=== PATIENT | female | born 1955 | race Caucasian/White ===

== ENCOUNTER 2016-11-07 07:09 | Day surgery (SDC) | payer OTHER ==
[2016-11-07] MEDS ORDERED: LIDOCAINE 1% 5 ML SDV ID PRN (07:21)
[2016-11-07] MEDS ORDERED: LR 1,000 ML IV ONE (07:21)
[2016-11-07] MEDS ORDERED: LIDOCAINE 1% 2 ML INJ ONE (07:26)
--- NOTE | 2016-11-07 08:05 | PDANEPAE ---
ANE Past Medical History - Cardiovascular History Hx Hypertension: Yes Hx Arrhythmias: No Hx Chest Pain: No Hx Coronary Artery / Peripheral Vascular Disease: No Hx CHF / Valvular Disease: No Hx Palpitations: No - Pulmonary History Hx COPD: No Hx Asthma/Reactive Airway Disease: No Hx Recent Upper Respiratory Infection: No Hx Oxygen in Use at Home: No - Neurologic History Hx Cerebrovascular Accident: No Hx Seizures: No Hx Dementia: No - Endocrine History Hx Diabetes: No - Renal History Hx Renal Disorders: No - Liver History Hx Hepatic Disorders: No - Neurological & Psychiatric Hx Hx Neurological and Psychiatric Disorders: Yes - Cancer History Hx Cancer: No - Congenital Disorder History Hx Congenital Disorders: No - GI History Hx Gastrointestinal Disorders: Yes - Chronic Pain History Chronic Pain: No ANE Review of Systems - Exercise capacity METS (RN): 4 METS - Systems Neurological: Reports: anxiety ANE Patient History - Allergies Allergies/Adverse Reactions: erythromycin base [Erythromycin Base] Allergy (Severe, Verified 05/17/10 12:14) TONGUE SWELLING - Home Medications Home Medications: Clonazepam 10/31/16 [Last Taken 11/06/16 21:00] Dicyclomine 10/31/16 [Last Taken 11/06/16 21:00] Magnesium 10/31/16 [Last Taken 1 Week Ago] Metoprolol Succinate 10/31/16 [Last Taken 11/06/16 19:00] Omeprazole 10/31/16 [Last Taken 11/06/16 08:00] - NPO status NPO Since - Liquids (Date): 11/06/16 NPO Since - Liquids (Time): 23:00 NPO Since - Solids (Date): 11/06/16 NPO Since - Solids (Time): 18:00 - Smoking Hx Smoking Status: Light smoker - Family Anes Hx Family Hx Anesthesia Complications: none ANE Labs/Vital Signs - Vital Signs Blood Pressure: 128/98 Heart Rate: 75 Respiratory Rate: 16 O2 Sat (%): 94 Height: 162.56 cm Weight: 53.524 kg
[2016-11-07] MEDS ORDERED: MIDAZOLAM 2 MG/2 ML VIAL ONE (08:07)
[2016-11-07] MEDS ORDERED: PROPOFOL/EMULSION 500 MG/50 ML BOTTLE IV ONE (08:07)
--- NOTE | 2016-11-07 08:07 | PDGENHP ---
History & Physical Outpatient Chief Complaint: thickened gastric fold History of Present Illness: 61 year old female with chronic abdominal pain and diarrhea had a recent EGD which revealed thickened gastric folds. Pertinent Past, Social, Family History: PMHX: HTN, anxiety. FaMHx: Esophageal cancer, CRC. SoHX: + smoker Relevant Physical Exam: HEEN: Anicteric. CV- RRR +s1s2. Lungs: CTAB. Abd: soft, nt , + BS. No g/r Cardiorespiratory Assessment: ASA 3
[2016-11-07] MEDS ORDERED: LIDOCAINE 2% 100 MG/5 ML SYR ONE (08:08)
[2016-11-07] MEDS ORDERED: NS 500 ML IV SCH (08:15)
--- NOTE | 2016-11-07 08:15 | POSTOPPROG ---
Post Op Note Date of Operation: 11/07/16 Surgeon: Saleem Mccain Anesthesia: IV Sedation Pre-op Diagnosis: thickened gastric folds Post-op Diagnosis: r93.3, gastritis, thickened gastric folds, liver cyst Indication: thickened gastric folds Procedure: egd with bx, eus Findings: Thickening in mm and mp layer. No varices. + gastritis. Inf/Abcess present in the surg proc area at time of surgery?: No
[2016-11-07] MEDS ORDERED: NALOXONE HCL 0.4 MG/ML INJ IVP PRN (08:57)
[2016-11-07] MEDS ORDERED: ALBUTEROL 3 ML DEYVIAL IH PRN (08:57)
[2016-11-07] MEDS ORDERED: fentaNYL 100 MCG/2 ML INJ IVP PRN (08:57)
[2016-11-07] MEDS ORDERED: ONDANSETRON 4 MG/2 ML VIAL IVP PRN (08:57)
[2016-11-07] MEDS ORDERED: LR 500 ML IV PRN (08:57)
--- NOTE | 2016-11-07 08:58 | POSTANESTH ---
Post Anesthetic Evaluation Respiratory Status: Normal, Stable Level of Consciousness/Mental Status: Can Participate in Eval Pain Control: Adequate, Prn Tx Ordered Nausea/Vomiting Control: Adequate, Prn Tx Ordered Complications Possibly Related to Anesthesia: None Noted
--- NOTE | 2016-11-07 10:04 | GPN ---
[f rep st] PROCEDURE NOTE DATE OF PROCEDURE: 11/07/2016 PROCEDURE: Esophagogastroduodenoscopy with biopsy, endoscopic ultrasound. INDICATIONS: The patient is a 61-year-old female who recently had an upper endoscopy performed for epigastric abdominal pain. She was noted to have thickened gastric folds. She presents for further evaluation. CONSENT: Risks, benefits, and alternatives of the procedure were discussed in great detail with the patient. Risks of infection, bleeding, perforation, and sedation were discussed. All questions answered. Informed consent was obtained. MEDICATIONS: Propofol. Please see Anesthesia record for details. ESTIMATED BLOOD LOSS: Insignificant. ESOPHAGOGASTRODUODENOSCOPY EXAMINATION: The Olympus upper endoscope was introduced into her her mouth and advanced to the esophagus: The proximal, mid , and distal esophagus were normal in appearance. No evidence of [place] esophagitis was noted. The stomach was entered and closely examined, including retroflexed views of the angularis, cardia, and fundus. The folds in the cardia, fundus, and body were thickened. Tunnel biopsies were taken of 1 of the folds in the body. In the antrum, the folds were normal. The mucosa in the antrum and body was noted to be erythematous and mildly nodular, and biopsies were taken. The duodenal bulb and 2nd portion of the duodenum were normal in appearance. ENDOSCOPIC ULTRASOUND EXAMINATION,: The Olympus linear echoendoscope was introduced into the mouth and advanced to the second portion of the duodenum. The pancreas was carefully examined from the uncinate process to the tail where the spleen was seen. The patient was noted to hyperechoic foci throughout the pancreas. Multiple dilated side branches were seen with hyperechoic shabazz Lobulations were also seen in the body. In the right kidney, a arge cyst was noted which measured approximately 5 x 6 cm. The common bile duct was seen and was without stone, stricture, or stenosis. No suspicious periportal, peripancreatic, or perigastric nodes appreciated. The gastric fold was carefully examined. There was thickening in the mucosa and submucosa layer. No obvious mass lesion was seen. No varices were noted. IMPRESSION: 1. Thickened fold - suspect benign process. Will await biopsy results. 2. Gastritis, status post biopsies. 3. Right renal cyst 4. Parenchymal change of the pancreas which may represent chronic pancreatitis. RECOMMENDATION: 1. Follow up on biopsy results. 2. Follow up in the office in 6 weeks. /[id number]/MODL MTDD
[2016-11-07 10:11] VITALS: RESP 15
[2016-11-07 10:31] VITALS: BP 138/96; PULSE 64; TEMP 97.5; O2SAT 95
== END 2016-11-07 10:39 | disposition home or self-care (01) ==
LOC: FSGY 07:09
PROVIDERS: ATTEND Internal Medicine Gastroenterology
PROC: 0DB68ZX Excision of Stomach, Via Natural or Artificial Opening Endoscopic, Diagnostic (ICD-10-PCS; principal; 2016-11-07 08:30)
DX: K29.70 Gastritis, unspecified, without bleeding (principal); N28.1 Cyst of kidney, acquired; I10 Essential (primary) hypertension
CPT/HCPCS: J2001; J2250; J2704